=== PATIENT | male | born 1965 | race Asian ===

== ENCOUNTER 2018-11-09 04:32 | Emergency (ER) | payer OTHER ==
[~2018-11-09] VITALS: Ht 182.9 cm; Wt 95.3 kg
[2018-11-09 05:47] LABS: Basophils # (auto) 0.1 uL; Basophils % (auto) 0.5 % (0.0-2.0); Eosinophils # (auto) 0 uL; Eosinophils % (auto) 0.4 % (0.0-7.0); Hematocrit 45.1 % (41.0-53.0); Hemoglobin 15.2 g/dL (13.5-17.5); Lymphocytes # (auto) 1.4 uL; Lymphocytes % (auto) 12.7 % (10.0-50.0); Mean Corpuscular Hemoglobin 29.7 pg (28.0-32.0); Mean Corpuscular Hgb Conc. 33.8 g/dL (32.0-36.0); Mean Corpuscular Volume 87.8 fL (80.0-100.0); Monocytes # (auto) 0.6 uL; Monocytes % (auto) 5.6 % (0.0-12.0); Neutrophils # (auto) 8.8 uL; Neutrophils % (auto) 80.8 % (37.0-80.0); Nucleated Red Blood Cells % 0.1 %; Platelet Count (auto) 319 10^3/uL (140-450); Red Blood Cells 5.13 10^6/uL (4.5-5.90); Red Cell Distribution Width 13.5 % (11.8-14.3); White Blood Cell 10.8 10^3/uL (4.4-10.8)
[2018-11-09] MEDS ORDERED: cloNIDine HCL 0.1 MG TAB PO ONE ×2 (06:00→07:30)
[2018-11-09 06:02] LABS: Chloride 104 mmol/L (98-107); Potassium 3.8 mmol/L (3.5-5.1); Sodium 137 mmol/L (136-145)
[2018-11-09 06:05] LABS: Anion Gap 9 (5-15); Blood Urea Nitrogen 14 mg/dL (7-18); Calcium 8.3 mg/dL (8.5-10.1); Carbon Dioxide 24 mmol/L (21-32); Glucose 140 mg/dL (74-106)
[2018-11-09 06:09] LABS: Alanine Aminotransferase 44 U/L (16-61); Aspartate Aminotransferase 26 U/L (15-37); BUN/Creatinine Ratio 15.1; Bilirubin, Total 0.5 mg/dL (0.2-1.0); GFR African American 110 mL/min; GFR Non-African American 91 mL/min
[2018-11-09 06:10] LABS: Alkaline Phosphatase 81 U/L (45-117)
[2018-11-09 07:27] VITALS: BP 155/101
[2018-11-09 08:43] LABS: Urine Bacteria NONE SEEN /hpf (None Seen); Urine Blood Negative /uL (Negative); Urine Mucus FEW (None Seen); Urine Specific Gravity 1.018 (1.001-1.035); Urine WBC <1 /hpf (0 - 3)
== END 2018-11-09 09:06 | disposition home or self-care (01) ==
LOC: ER 04:32 → EDBD 04:32 → ER 09:06
DX: I10 Essential (primary) hypertension (principal); R42 Dizziness and giddiness; R51 Headache
CPT/HCPCS: 36415; 71045; 80053; 81001; 82962; 84484; 85025; 93005